=== PATIENT | male | born 1995 | race Caucasian/White ===

== ENCOUNTER → 2019-08-19 | Outpatient (CLI) | payer OTHER | END | disposition home or self-care (01) | LOC: CARD 12:36 | PROVIDERS: ATTEND Registered Nurse | DX: R25.9 Unspecified abnormal involuntary movements (principal) | CPT/HCPCS: 95819 ==

== ENCOUNTER → 2020-04-19 | Outpatient (CLI) | payer OTHER | END | disposition home or self-care (01) | LOC: RAD 17:25 | PROVIDERS: ATTEND Family Medicine | DX: R51 Headache (principal) | CPT/HCPCS: 70450 ==